=== PATIENT | female | born 1955 | race Hispanic/Latino ===

== ENCOUNTER 2017-08-04 08:20 | Day surgery (SDC) | payer OTHER, MEDICARE ==
[2017-08-04] MEDS ORDERED: ECOTRIN PO ONE ×2 (08:37→08:46)
[2017-08-04] MEDS ORDERED: NACL 0.9% 500 ML 500 ML ONE (08:37)
[2017-08-04] MEDS ORDERED: NACL 0.9% 500 ML 500 ML IV SCH (09:00)
[2017-08-04 09:06] LABS: Basophils % (Auto) 0.4 % (0.0-1.8); Eosinophils # (Auto) 0.1 K/mm3 (0.0-0.4); Eosinophils % (Auto) 2.6 % (0.0-4.3); Hemoglobin 12.8 gm/dl (10.1-14.3); Lymphocytes % (Auto) 38.7 % (13.4-35.0); Mean Corpuscular HGB Conc 33 % (30-34); Mean Corpuscular Hemoglobin 27 pg (28-32); Mean Corpuscular Volume 83 fl (79-97); Monocytes # (Auto) 0.4 K/mm3 (0.0-0.8); Monocytes % (Auto) 8.5 % (0.0-7.3); Platelet Count 241 K/mm3 (140-440); Red Cell Distribution Width 15.2 % (13.2-15.2)
[2017-08-04 09:19] LABS: INR 0.8 (0.87-1.13)
[2017-08-04 09:28] LABS: BUN/Creatinine Ratio 19; Blood Urea Nitrogen 13 mg/dL (7-17); Calcium 9.3 mg/dL (8.4-10.2); Hemolysis Index 19
[2017-08-04] MEDS ORDERED: HEPARIN/NS 5000 UNIT/500ML(CATH LAB) 1,000 ML IR ONE (10:02)
[2017-08-04] MEDS ORDERED: HEPARIN 10,000 UNITS/10 ML ONE (10:03)
[2017-08-04] MEDS ORDERED: XYLOCAINE 2% INFILTRATI ONE (10:03)
[2017-08-04] MEDS ORDERED: NITROGLYCERIN SYRINGE 3 ML ONE (10:03)
[2017-08-04] MEDS ORDERED: CALAN ONE (10:03)
[2017-08-04] MEDS ORDERED: VERSED ONE (10:23)
[2017-08-04] MEDS ORDERED: SUBLIMAZE ONE (10:23)
--- NOTE | 2017-08-04 11:03 | Short Stay Summary ---
Short Stay Documentation Date of service: 08/04/17 - History H&P: obtained from office - Allergies and Medications Current Medications: Allergies aripiprazole [From Abilify] Adverse Reaction (Severe, Verified 08/04/17 08:45) Nausea CHEMICALS IN ANATHESIA Allergy (Severe, Uncoded 08/04/17 08:45) Vomiting Home Medications Medication Instructions Recorded Confirmed Last Taken Type AtorvaSTATin [Lipitor] 40 mg PO QHS 08/04/17 08/04/17 08/03/17 History Carisoprodol [Soma] 350 mg PO PRN PRN 08/04/17 08/04/17 08/03/17 History Cetirizine HCl [ZyrTEC] 10 mg PO QDAY 08/04/17 08/04/17 08/03/17 History Duloxetine HCl [DULoxetine] 60 mg PO QDAY 08/04/17 08/04/17 08/03/17 History Furosemide [Lasix TAB] 10 mg PO QDAY 08/04/17 08/04/17 08/03/17 History Gabapentin [Neurontin] 800 mg PO BID 08/04/17 08/04/17 08/03/17 History HYDROcodone/APAP 5-325 [[place] 1 each PO HS 08/04/17 08/04/17 08/03/17 History 5/325] ISOSORBIDE MONOnitrate [Imdur ER] 15 mg PO DAILY 08/04/17 08/04/17 08/03/17 History Omeprazole 40 mg PO BID 08/04/17 08/04/17 08/03/17 History Promethazine [Phenergan TAB] 25 mg PO Q4H PRN 08/04/17 08/04/17 08/02/17 History SUMAtriptan SUCCINATE [Imitrex] 100 mg PO PRN PRN 08/04/17 08/04/17 08/03/17 History Sertraline [Zoloft] 100 mg PO QDAY 08/04/17 08/04/17 08/02/17 History Topiramate [Topamax] 200 mg PO BID 08/04/17 08/04/17 08/03/17 History Active Medications Sodium Chloride (Nacl 0.9% 500 Ml) 500 mls @ 50 mls/hr IV DIRECT RUSSEL Stop: 08/04/17 18:59 Last Admin: 08/04/17 08:50 Dose: 50 mls/hr Short Stay Discharge Plan Follow up with: ANN JAY MD [Other] - 7 Days
[2017-08-04 13:31] VITALS: BP 107/57
--- NOTE | 2017-08-05 03:43 | Cardiac Catherization Report ---
CARDIAC CATHETERIZATION REFERRING PHYSICIAN: García Lemos MD INDICATION FOR PROCEDURE: The patient is a very pleasant 62-year-old female with recurrent chest pain and multiple risk factors including hyperlipidemia and strong family history. She also an abnormal stress test with an apical reversible defect on nuclear imaging. Risks, benefits, and alternatives discussed. She would like to proceed with left heart catheterization. Informed consent obtained. PROCEDURE IN DETAIL: The patient was brought to catheterization lab in a postabsorptive state, prepped and draped in sterile fashion. Harman's test in right hand was normal. A 2 mL of 2% lidocaine used to anesthetize the right wrist. A standard 6-Dutch hydrophilic sheath used to cannulate the right radial artery via modified Seldinger technique. All exchanges were performed to exchange a J-tip guidewire. JL3.5 catheter used to engage left main. No dampening or ventricularization. Cineangiography performed in all projections. JR4 catheter was used to cross the aortic valve under fluoroscopic guidance. Left ventriculography performed in 30 [place] and 30 [place] projections via hand injections, catheter flushed. Manual pullback performed with continuous pressure monitoring. Catheter was used to engage the right coronary. No dampening or ventricularization. Cineangiography performed in all projections. Due to recurrent chest pain and normal coronaries, we proceeded with root aortography to exclude dissection or penetrating aortic ulcer. Pigtail catheter was used in the [place] projection with power injector. Next, catheter removed from the body of wire, sheath removed. Manual pressure used to achieve hemostasis. I directly supervised the administration of moderate sedation with fentanyl and Versed from 10:30 a.m. to 10:52 a.m. There were no immediate complications. The patient tolerated the procedure well. DATA: Aortic pressure is 120/70, LV pressure is 120, ____ of 50 mmHg. Left ventriculography revealed normal systolic performance, estimated ejection fraction of 55% to 60%. No evidence of aortic stenosis. CORONARY ANATOMY: This is a right dominant system. Right coronary is a moderate sized vessel, courses AV groove, distally bifurcates in the posterolateral and posterior descending arteries. There is a very small branch off the proximal right coronary that travels superiorly, tiny branch 0.25 mm in diameter. Unclear if this dumps into the aorta, but likely clinically insignificant. Left main without significant disease, bifurcates in left anterior descending and left circumflex. The left anterior descending is a moderate sized vessel, courses anterior intergroove, wraps around the apex, no significant disease. Left circumflex is a moderate sized vessel, courses AV groove. No significant disease. Root aortography reveals normal contour, normal great vessel anatomy, no dissection or penetrating aortic ulcer or aortic insufficiency. CONCLUSIONS: 1. No angiographic evidence of significant epicardial coronary disease in this right dominant system. 2. Normal left ventricular systolic performance. 3. No evidence of aortic stenosis. 4. Normal root aortography without evidence of dissection or penetrating aortic ulcer. The patient is clinically stable, chest pain free. I believe her chest pain is noncardiac. Standard radial care. Follow up with Dr. Andrea Lemos in the office. Risk factor modifications. Results of procedure explained at length to the patient and her . All questions and concerns were addressed. JOB# [id number] POLLO/KATHERIN
== END 2017-08-04 08:21 | disposition home or self-care (01) ==
LOC: CATHLABREC 08:20
PROVIDERS: ATTEND Internal Medicine
DX: R07.89 Other chest pain (principal); M19.90 Unspecified osteoarthritis, unspecified site; E78.5 Hyperlipidemia, unspecified; G43.909 Migraine, unspecified, not intractable, without status migrainosus; M79.7 Fibromyalgia; Z98.890 Other specified postprocedural states; Z90.710 Acquired absence of both cervix and uterus; Z82.49 Family history of ischemic heart disease and other diseases of the circulatory system
CPT/HCPCS: 36415; 80048; 85025; 85610; 85730; 93005; 93010; 93458; 93567; 99156; C1894; J1644; J2250; J3010; J7040; Q9967